=== PATIENT | female | born 1975 | race Caucasian/White ===

== ENCOUNTER 2016-11-23 09:07 | Inpatient (IN) | payer OTHER ==
[~2016-11-23] VITALS: Ht 172.7 cm; Wt 65.8 kg
[2016-11-29] VITALS (12 sets, daily range): BP systolic 99–109; BP diastolic 45–57; PULSE 61–93; RESP 18; TEMP 97.6–98.3; O2SAT 98–100
--- NOTE | 2016-11-29 08:35 | MH ---
cc: CASSANDRA SANDS DATE OF ADMISSION: 11/29/2016 DATE OF 1975 SCHEDULED PROCEDURE Primary section. INDICATION Macrosomic, breech infant. HISTORY OF PRESENT CONDITION The patient is a 40-year-old single white female, 4, para 0-0-3-0 with LMP 02/10/2016 and EDC 11/25 by dates, but by a 7-week ultrasound it was changed to December 04. This places her at 39-1/2 weeks estimated gestational age. She was a patient seeing Dr. Jameson and Dr. Robin but was sent to my schedule at 37-1/2 weeks to discuss external cephalic version for persistent breech. At that time it was noted that she had reasonable fluid at 13 but that the baby is engaged in the pelvis 2 cm. His estimated weight is over 9. His head was no ideally flexed. Placenta was posterior but I did not feel that there was adequate opportunity for successful external cephalic version. This was discussed in detail with Rachel and her family and the decision was made to proceed with a primary low transverse segment section. The risks, benefits and alternatives have been described in detail. Her has been complicated by the fact that at early on there was a twin conception noted but beginning at about 11 weeks the second twin began to resorb and is no longer visible. She had additional screening with free cell DNA which was negative for trisomy 13. She had a single cord plexus cyst that resolved. She has hypothyroidism which has been followed closely during the and she was co-managed by [facility] during the more intensive time of this gestation. At this point she is term with very reassuring surveillance, carrying a male infant in a carito breech position with an extended head, posterior placenta and adequate fluid. She is engaged and she i 2+ cm. Her blood type is A-positive. Her hemoglobin was 12.5. Her Pap smear is normal. She is immune to Dutch measles and chickenpox. She had negative serology. TSH was 1.49. Her one-hour Glucola was 98 and her Group B Strep is positive. GENERAL HISTORY Negative for chronic or systemic illnesses. SOCIAL HISTORY She does not smoke, drink or use illicit drugs. FAMILY HISTORY Essentially noncontributory. PHYSICAL EXAMINATION GENERAL: She is a well-developed, well-nourished white female. VITAL SIGNS: Initial weight was 128. Her current weight is 168. She has been normotensive. No gestational diabetes and no labor. At the time of her visit for preop, she expressed good movement. No leaking bleeding or regular contractions. NECK: She has no thyroid enlargement. LUNGS: Clear to auscultation. HEART: Rate and rhythm are regular, without murmur, heave or thrills. ABDOMEN: The fundus is about 40 cm. The is in vertex position. She has clinically adequate pelvis. heart tones in the 140s. EXTREMITIES: 1+ edema. Normal deep tendon reflexes. Blood pressure: She has been normotensive throughout the whole in 90s/60s essentially the entire time. IMPRESSION Healthy 40-year-old with a gomez after a vanishing twin syndrome with mild hypothyroidism with a persistent breech. PLAN The plan is to proceed with primary low transverse segment section at noon. The risks, benefits, expectations, alternatives have been discussed with Rachel and she is comfortable with proceeding. Cassandra Sands MD PPC/SSB /8:09 AM /8:23 AM
[2016-11-29] MEDS ORDERED: OXYTOCIN 10 UNIT/ML AMP ONE (11:06)
[2016-11-29 11:13] LABS: BASOPHIL % 0.3 % (0.0-2.0); EOSINOPHIL # 0.2 TH/MM3 (0-0.4); EOSINOPHIL % 1.2 % (0.0-4.0); HEMATOCRIT 37.4 % (35.0-46.0); HEMO FLAGS DIFF FINAL; LYMPH % 15.5 % (9.0-44.0); LYMPHOCYTE # 2.1 TH/MM3 (1.0-4.8); MEAN CELL VOLUME 94.1 FL (80.0-100.0); MEAN CORPUSCULAR HEMOGLOBIN 31.4 PG (27.0-34.0); MEAN CORPUSCULAR HGB CONC 33.3 % (32.0-36.0); MONO % 8.4 % (0.0-8.0); NEUT % 74.6 % (16.0-70.0); PLATELET COUNT 195 TH/MM3 (150-450); RED BLOOD COUNT 3.98 MIL/MM3 (4.00-5.30); WHITE BLOOD COUNT 13.4 TH/MM3 (4.0-11.0)
[2016-11-29 11:16] LABS: BACTERIA, URINE OCC /hpf; BLOOD, URINE NEG (NEG); COMMENT (UR) CULT NOT INDICATED; CULTURE IF INDICATED CULT NOT INDICATED; GLUCOSE,URINE NEG (NEG); HYALINE CAST, URINE 1 /lpf (RARE); KETONE, URINE 40 mg/dL (NEG); MUCUS URINE FEW /lpf (OCC); NITRITE,URINE NEG (NEG); PH, URINE 6.5 (5.0-8.5); SQUAMOUS EPITHELIAL CELL URINE 1 /hpf (0-5); URINE COLOR YELLOW (YELLW/STRAW)
[2016-11-29] MEDS ORDERED: CITRIC ACID-SODIUM CITRATE LIQ 30 ML UDC PO SCH (11:30)
[2016-11-29] MEDS ORDERED: LACTATED RINGER'S 1000 ML IV ONE (11:30)
[2016-11-29] MEDS: LACTATED RINGER'S 1000 ML IV SCH (11:30)
[2016-11-29] MEDS ORDERED: ceFAZolin 2 GM PREMIX 50 ML IV SCH (11:30)
[2016-11-29] MEDS ORDERED: EPIDURAL-DO NOT ADMINISTER ANTICOAGULANTS XX PRN (12:20)
[2016-11-29] MEDS ORDERED: EPIDURAL-NALOXONE HCL 0.4 MG/ML AMP IV PRN (12:20)
[2016-11-29] MEDS ORDERED: EPIDURAL-DIPHENHYDRAMINE HCL 50 MG CAP PO PRN (12:20)
[2016-11-29] MEDS ORDERED: EPIDURAL-NO SYSTEMIC NARCOTICS XX PRN (12:20)
[2016-11-29] MEDS ORDERED: EPIDURAL-DIPHENHYDRAMINE HCL 50 MG/ML VIAL IV PUSH PRN (12:20)
--- NOTE | 2016-11-29 12:29 | PD.OB.DELI ---
Procedure Note Section Procedure Pre Op Diagnosis term, breech, LGA Post Op Diagnosis: Post Op Diagnosis same. delivered Performed by Cassandra Gutiérrez Procedure: Primary Low Transverse Sec Indication for delivery: malposition Informed consent obtained: For anesthesia, For procedure Confirmed correct: Patient, Procedure, Site Anesthesia: Spinal Medication prior to procedure: As documented in eMAR Monitoring during procedure: Blood pressure monitoring Urinary catheter: Inserted using sterile technique, To dependent drainage Sterile preparation: Duraprep, In usual fashion Position: Supine with wedge to right side Operative Features Uterine Incision: Low transverse w/knife / blunt ext Membranes Ruptured: Artificially Presentation: Breech Delivery of infant: Cassandra Dominguez MD Nov 29, 2016 12:29
[2016-11-29] MEDS ORDERED: oxyCODONE/ACETAMINOPHEN 5 MG/325 MG TAB PO PRN (12:30)
[2016-11-29] MEDS ORDERED: OXYTOCIN 30 UNITS-500ML PREMIX 500 ML IV ONE (12:30)
[2016-11-29] MEDS ORDERED: ACETAMINOPHEN 1000 MG/100 ML VIAL IV ONE ×2 (12:30→13:40)
[2016-11-29] MEDS ORDERED: SODIUM CHLORIDE 0.9% FLUSH 5 ML FLUSH IV PRN (12:30)
[2016-11-29] MEDS ORDERED: ONDANSETRON HCL 4 MG/2 ML VIAL IV PUSH PRN (12:30)
[2016-11-29] MEDS ORDERED: ZOLPIDEM TARTRATE 5 MG TAB PO PRN (12:30)
[2016-11-29] MEDS ORDERED: ONDANSETRON HCL 4 MG/2 ML VIAL ONE (13:20)
[2016-11-29] MEDS ORDERED: MORPHINE SULFATE PF 5 MG/10 ML VIAL ONE (13:20)
[2016-11-29] MEDS ORDERED: OXYTOCIN 30 UNITS-500ML PREMIX 500 ML ONE (13:40)
[2016-11-29] MEDS ORDERED: LACTATED RINGER'S 1000 ML INJ 1,000 ML IV SCH (17:29)
[2016-11-29] MEDS: SODIUM CHLORIDE 0.9% FLUSH 5 ML FLUSH IV SCH (21:00)
[2016-11-29] MEDS ORDERED: OXYTOCIN 30 UNITS-500ML PREMIX 500 ML IV PRN (22:30)
[2016-11-30] MEDS: LACTATED RINGER'S 1000 ML IV SCH ×2 (00:50→14:10)
[2016-11-30] MEDS: IBUPROFEN 600 MG TAB PO PRN ×3 (02:29→21:24)
[2016-11-30 02:30] VITALS: BP 111/56; PULSE 74; RESP 20; TEMP 98.4
[2016-11-30 06:01] LABS: AUTOMATED NEUTROPHIL # 15.6 TH/MM3 (1.8-7.7); BASOPHIL # 0.1 TH/MM3 (0-0.2); BASOPHIL % 0.3 % (0.0-2.0); EOSINOPHIL # 0.1 TH/MM3 (0-0.4); EOSINOPHIL % 0.5 % (0.0-4.0); HEMATOCRIT 29.5 % (35.0-46.0); HEMO FLAGS DIFF FINAL; LYMPH % 11.6 % (9.0-44.0); LYMPHOCYTE # 2.3 TH/MM3 (1.0-4.8); MEAN CELL VOLUME 94.5 FL (80.0-100.0); MEAN CORPUSCULAR HEMOGLOBIN 32.1 PG (27.0-34.0); MONO % 8.3 % (0.0-8.0); NEUT % 79.3 % (16.0-70.0); PLATELET COUNT 164 TH/MM3 (150-450); RED BLOOD COUNT 3.13 MIL/MM3 (4.00-5.30); RED CELL DISTRIBUTION WIDTH 14.3 % (11.6-17.2); WHITE BLOOD COUNT 19.7 TH/MM3 (4.0-11.0)
--- NOTE | 2016-11-30 08:18 | HHI.OB ---
Subjective Post Operative Day: 1 Remarks doing well getting pump for now as son in regular nursery for mild TTN she is walking and in good spirits desires circumcision Objective Vitals/I&O Vital Signs Date Time Temp Pulse Resp B/P Pulse Ox O2 Delivery O2 Flow Rate FiO2 11/30/16 02:30 98.4 11/30/16 02:30 74 20 111/56 11/29/16 20:15 107/45 11/29/16 20:15 98.3 74 18 11/29/16 18:00 18 11/29/16 17:55 18 11/29/16 16:20 97.6 68 18 99 11/29/16 16:20 104/56 11/29/16 15:20 18 11/29/16 15:00 18 11/29/16 14:25 108/53 11/29/16 14:25 88 18 98 11/29/16 14:15 61 109/54 11/29/16 14:00 68 18 108/57 11/29/16 14:00 99 11/29/16 13:45 85 18 105/55 11/29/16 13:45 99 11/29/16 13:30 98.0 88 18 99/52 11/29/16 13:30 98 11/29/16 13:15 97.8 93 18 11/29/16 13:15 98 11/29/16 13:15 109/49 Result Diagram: 11/30/16 0533 Objective Remarks GENERAL: Well-nourished, well-developed patient. CARDIOVASCULAR: Regular rate and rhythm without murmurs, gallops, or rubs. great nipples for nursing RESPIRATORY: Breath sounds equal bilaterally. No accessory muscle use. ABDOMEN/GI: Abdomen soft, non-tender, bowel sounds present. Incision: Clean, dry and intact. Fundus: Firm, non-tender at umbilicus. GENITOURINARY: Light to moderate bleeding. EXTREMITIES: No cyanosis or edema, non-tender, without signs of DVT. Medications and IVs Current Medications Medications (Trade) Dose Ordered Sig/Nelly Route Start Time Stop Time Status Last Admin Lactated Ringer's 1,000 ml @ 150 mls/hr Q6H40M IV 11/29/16 11:30 (Lr 1000 ml Inj) 1,000 ml @ 100 mls/hr Q10H IV 11/29/16 17:29 11/30/16 13:28 (NS Flush) 2 ml BID IV 11/29/16 21:00 (NS Flush) 2 ml UNSCH PRN IV 11/29/16 12:30 11/29/16 15:22 (Mylicon Chew) 80 mg QID PRN PO 11/29/16 12:30 (Motrin) 600 mg Q6H PRN PO 11/29/16 12:30 11/30/16 02:29 (Percocet 5-325 Mg) 1 tab Q4H PRN PO 11/29/16 12:30 (Percocet 5-325 Mg) 2 tab Q4H PRN PO 11/29/16 12:30 (Shwetha-Colace) 2 tab Q12H PRN PO 11/29/16 12:30 (Ambien) 5 mg HS PRN PO 11/29/16 12:30 (M-M-R Ii Inj) 0.5 ml ONCE ONCE SQ 11/30/16 16:00 11/30/16 16:01 (Boostrix Inj) 0.5 ml ONCE ONCE IM 11/30/16 16:00 11/30/16 16:01 (Zofran Inj) 4 mg Q6H PRN IV PUSH 11/29/16 12:30 11/29/16 15:22 Miscellaneous Information NO SYSTEMIC NARCOTICS TO BE GIVEN FO... UNSCH PRN XX 11/29/16 12:20 11/30/16 12:19 (Narcan Inj) 0.4 mg UNSCH PRN IV 11/29/16 12:20 11/30/16 12:19 (Benadryl Inj) 25 mg Q6H PRN IV PUSH 11/29/16 12:20 11/30/16 12:19 (Benadryl) 50 mg Q6H PRN PO 11/29/16 12:20 11/30/16 12:19 Miscellaneous Information ALL NURSING DEPARTMENTS UNSCH PRN XX 11/29/16 12:20 11/30/16 12:19 Assessment/Plan Assessment and Plan baby to mom once ok by Adding Machine Mechanic plans to nurse exclusively anticipate normal recovery Cassandra Gutiérrez MD Nov 30, 2016 08:18
[2016-11-30] MEDS: SODIUM CHLORIDE 0.9% FLUSH 5 ML FLUSH IV SCH (09:00)
[2016-11-30 13:05] VITALS: BP 99/69; PULSE 68; RESP 18; TEMP 98.1
[2016-11-30] MEDS: SIMETHICONE 80 MG CHEWABLE TAB PO PRN ×2 (13:11→21:26)
[2016-11-30] MEDS ORDERED: DIPHTH/TETANUS/ACEL PERTUSSIS (BOOSTER) 0.5 ML VIAL/PFS IM ONE (16:00)
[2016-11-30] MEDS ORDERED: MEASLES, MUMPS, RUBELLA VACCINE 0.5 ML VIAL SQ ONE (16:00)
--- NOTE | 2016-11-30 17:17 | MP ---
cc: FELIX SANDS DATE OF 1975 DATE OF SURGERY 11/29/2016 PREOPERATIVE DIAGNOSIS Term LGA breech , not a candidate for external cephalic version. POSTOPERATIVE DIAGNOSIS Term LGA breech infant, not a candidate for external cephalic version. PROCEDURE Primary low transverse section of a carito breech . SURGEON Dr. Meghan Sands [employer] [place], [place]-3 FINDINGS A living male infant in right sacrum anterior position, carito breech. Was delivered using classic Pinard maneuvers, weighing 9 pounds 11 ounces, with Apgars of 8 at one and 9 at five. The cord was allowed to pulse for 45 seconds prior to clamping. The placenta was ineligible for the Medics donation program due to a parental trip to a [place] country. ESTIMATED BLOOD LOSS Average. COUNTS Sponge, instrument, needle count were correct. Uterus, tubes and ovaries were otherwise unremarkable. The placenta was posterior, intact with a three-vessel cord. Mom and baby tolerated procedure well. PROCEDURE The patient was identified as Rachel Diamond. She had been permitted in the office on the risks, benefits, expectations of primary elective section versus a tentative external cephalic version versus attempted vaginal breech delivery. As she was 2 cm with the baby engaged but not well applied, so the choice was suction. She was walked to the operating room. She was administered spinal with Duramorph, placed in dorsal supine position with weight off the vena cava. Sequential stockings were placed and a Randall catheter was placed. She was prepped and draped in the usual sterile fashion. A time-out was performed with all in attendance. She had received 2 grams of Ancef within an hour of incision. After assuring adequate analgesia, a Pfannenstiel incision was made with a knife and carried down through to the rectus fascia with a Bovie on cutting. The rectus fascia was incised in an elliptical fashion and dissected off the rectus muscle. The rectus muscles bluntly in the midline and the parietal peritoneum was entered with care to avoid the bladder. This was bluntly extended and the bladder blade placed to protect the bladder. A bladder flap was created off the lower uterine segment. The was palpated to be in breech position and a small incision was made into the intrauterine cavity and this was extended bluntly in a vertical fashion. The infant was then delivered using classic Pinard maneuvers to reduce the legs which were in the patient's upper left quadrant and then did deliver the arms and then flex the head and finally deliver the head. He was bulb suctioned on the abdomen. The cord was clamped x2 and cut after 45 seconds and he was handed over to the neonatology team in attending. The placenta was delivered manually intact with a three-vessel cord. The uterus was exteriorized, cleaned with a lap sponge and closed with chromic in a running interlocking fashion with a second horizontal imbricating suture. This incorporated the visceral peritoneum. Then the incision was assessed for hemostasis. The uterus was replaced back into the pelvic cavity and irrigation was performed. Then the parietal peritoneum and rectus muscles approximated in a running stitch. The fascia was closed with 1 Vicryl in a running stitch. Subcutaneous layer was closed with 3-0 plain and the skin was closed with 4-0 Vicryl on a Rojelio needle. Estimated blood loss was average. Sponge, instrument, needle count were correct and she tolerated the procedure well. MD CONNOR Olson/KK /7:46 AM /5:04 PM
[2016-11-30] MEDS: DOCUSATE SODIUM 50 MG/SENNA 8.6 MG TAB PO PRN (21:24)
[2016-11-30] MEDS: oxyCODONE/ACETAMINOPHEN 5 MG/325 MG TAB PO PRN (21:24)
[2016-12-01] MEDS: IBUPROFEN 600 MG TAB PO PRN ×4 (04:14→22:38)
[2016-12-01] MEDS: oxyCODONE/ACETAMINOPHEN 5 MG/325 MG TAB PO PRN ×4 (04:14→22:38)
[2016-12-01 07:35] VITALS: BP 97/53; PULSE 60; RESP 18; TEMP 98
[2016-12-01] MEDS: SODIUM CHLORIDE 0.9% FLUSH 5 ML FLUSH IV SCH (09:00)
[2016-12-01] MEDS: LACTATED RINGER'S 1000 ML IV SCH (10:10)
--- NOTE | 2016-12-01 12:00 | HHI.OB ---
Subjective Post Operative Day: 2 Remarks POD#2, Doing well, plan discharge for Objective Vitals/I&O Vital Signs Date Time Temp Pulse Resp B/P Pulse Ox O2 Delivery O2 Flow Rate FiO2 12/01/16 07:35 98.0 60 18 97/53 11/30/16 13:05 98.1 68 18 99/69 Result Diagram: 11/30/16 0533 Objective Remarks GENERAL: Well-nourished, well-developed patient. CARDIOVASCULAR: Regular rate and rhythm without murmurs, gallops, or rubs. great nipples for nursing RESPIRATORY: Breath sounds equal bilaterally. No accessory muscle use. ABDOMEN/GI: Abdomen soft, non-tender, bowel sounds present. Incision: Clean, dry and intact. Fundus: Firm, non-tender at umbilicus. GENITOURINARY: Light to moderate bleeding. EXTREMITIES: No cyanosis or edema, non-tender, without signs of DVT. Medications and IVs Current Medications Medications (Trade) Dose Ordered Sig/Nelly Route Start Time Stop Time Status Last Admin (Lr 1000 ml Inj) 1,000 ml @ 150 mls/hr Q6H40M IV 11/29/16 11:30 (NS Flush) 2 ml BID IV 11/29/16 21:00 (NS Flush) 2 ml UNSCH PRN IV 11/29/16 12:30 11/29/16 15:22 (Mylicon Chew) 80 mg QID PRN PO 11/29/16 12:30 11/30/16 21:26 (Motrin) 600 mg Q6H PRN PO 11/29/16 12:30 12/01/16 09:51 (Percocet 5-325 Mg) 1 tab Q4H PRN PO 11/29/16 12:30 12/01/16 09:51 (Percocet 5-325 Mg) 2 tab Q4H PRN PO 11/29/16 12:30 (Shwetha-Colace) 2 tab Q12H PRN PO 11/29/16 12:30 11/30/16 21:24 (Ambien) 5 mg HS PRN PO 11/29/16 12:30 (Zofran Inj) 4 mg Q6H PRN IV PUSH 11/29/16 12:30 11/29/16 15:22 Assessment/Plan Assessment and Plan POD# 2; Stable, anticipate discharge for thur. Discharge Planning Does not meet criteria Attending Attestation seen by Lucio Arteaga MD Dec 01, 2016 12:00
--- NOTE | 2016-12-01 12:01 | HHI.DS ---
Admission Date Nov 29, 2016 at 10:03 Admitting Diagnosis Diagnosis: : Primary : Male Pt Condition on Discharge: Good Discharge Disposition: Discharge Home Discharge Instructions Diet Instructions: As Tolerated, No Restrictions Activities You Can Perform: Shower Only-No Bath Activities to Avoid: Prolonged Standing, Strenuous Activity, Driving, Sexual Activity Lucio Wade MD Dec 01, 2016 12:01
[2016-12-01] MEDS ORDERED: SENN1TAB PO (13:26)
[2016-12-01] MEDS ORDERED: IBUP-232 PO (13:26)
[2016-12-01] MEDS ORDERED: OXYC1TAB63 PO (13:26)
[2016-12-01 19:50] VITALS: BP 110/64; PULSE 60; RESP 18; TEMP 97.4
[2016-12-01] MEDS: DOCUSATE SODIUM 50 MG/SENNA 8.6 MG TAB PO PRN (22:38)
[2016-12-02] MEDS: IBUPROFEN 600 MG TAB PO PRN ×2 (06:13→12:37)
[2016-12-02] MEDS: oxyCODONE/ACETAMINOPHEN 5 MG/325 MG TAB PO PRN ×2 (06:13→12:37)
--- NOTE | 2016-12-02 08:04 | HHI.OB ---
Subjective Post Operative Day: 3 Remarks nursing well desires circumcision appropriate discomfort Objective Vitals/I&O Vital Signs Date Time Temp Pulse Resp B/P Pulse Ox O2 Delivery O2 Flow Rate FiO2 12/01/16 19:50 97.4 12/01/16 19:50 60 18 110/64 Result Diagram: 11/30/16 0533 Objective Remarks GENERAL: Well-nourished, well-developed patient. CARDIOVASCULAR: Regular rate and rhythm without murmurs, gallops, or rubs. great nipples for nursing RESPIRATORY: Breath sounds equal bilaterally. No accessory muscle use. ABDOMEN/GI: Abdomen soft, non-tender, bowel sounds present. Incision: Clean, dry and intact. Fundus: Firm, non-tender at umbilicus. GENITOURINARY: Light to moderate bleeding. EXTREMITIES: No cyanosis or edema, non-tender, without signs of DVT. Medications and IVs Current Medications Medications (Trade) Dose Ordered Sig/Nelly Route Start Time Stop Time Status Last Admin (Lr 1000 ml Inj) 1,000 ml @ 150 mls/hr Q6H40M IV 11/29/16 11:30 (NS Flush) 2 ml BID IV 11/29/16 21:00 (NS Flush) 2 ml UNSCH PRN IV 11/29/16 12:30 11/29/16 15:22 (Mylicon Chew) 80 mg QID PRN PO 11/29/16 12:30 11/30/16 21:26 (Motrin) 600 mg Q6H PRN PO 11/29/16 12:30 12/02/16 06:13 (Percocet 5-325 Mg) 1 tab Q4H PRN PO 11/29/16 12:30 12/02/16 06:13 (Percocet 5-325 Mg) 2 tab Q4H PRN PO 11/29/16 12:30 (Shwetha-Colace) 2 tab Q12H PRN PO 11/29/16 12:30 12/01/16 22:38 (Ambien) 5 mg HS PRN PO 11/29/16 12:30 (Zofran Inj) 4 mg Q6H PRN IV PUSH 11/29/16 12:30 11/29/16 15:22 Assessment/Plan Assessment and Plan POD# 3; Stable, discharge after circumcision RTO 1 week Discharge Planning Does not meet criteria Carbiener,Cassandra Sac MD Dec 02, 2016 08:04
[2016-12-02 08:25] VITALS: BP 96/56; PULSE 62; RESP 16; TEMP 98.2
[2016-12-02] MEDS: LACTATED RINGER'S 1000 ML IV SCH ×2 (08:25→12:50)
[2016-12-02] MEDS: SODIUM CHLORIDE 0.9% FLUSH 5 ML FLUSH IV SCH (08:58)
== END 2016-12-02 14:32 | disposition home or self-care (01) | DRG 766 ==
LOC: H2EB 11-29 10:03 → H1EA 11-29 15:02
PROVIDERS: ADMIT Obstetrics & Gynecology; ATTEND Obstetrics & Gynecology
PROC: 10D00Z1 Extraction of Products of Conception, Low, Open Approach (ICD-10-PCS; principal; 2016-11-29)
PROC: 10907ZC Drainage of Amniotic Fluid, Therapeutic from Products of Conception, Via Natural or Artificial Opening (ICD-10-PCS; 2016-11-29)
DX: O32.1XX1 Maternal care for breech presentation, fetus 1 (principal); E03.9 Hypothyroidism, unspecified; O36.63X1 Maternal care for excessive fetal growth, third trimester, fetus 1; Z37.0 Single live birth; Z3A.39 39 weeks gestation of pregnancy; O99.284 Endocrine, nutritional and metabolic diseases complicating childbirth; O99.820 Streptococcus B carrier state complicating pregnancy
CPT/HCPCS: 59025; 81001; 85025; 86850; 86900; 86901; J0131; J0690; J2274; J2405; J2590; J3010; J7120